=== PATIENT | male | born 1990 | race Caucasian/White ===

== ENCOUNTER 2016-03-23 05:30 | Emergency (ER) | payer OTHER, SELFPAY ==
[~2016-03-23 05:30] MED LIST: CELE20TA PO
--- NOTE | 2016-03-23 07:07 | EDDOCDS ---
Nurse's Notes [facility] Name: Emmett Gandhi Age: 25 yrs Sex: Male : 1990 Arrival Date: 03/23/2016 Time: 05:30 Bed I3 / M3 Private MD: Diagnosis: Presentation: 03/23 05:33 Presenting complaint: Patient states: Hot and cold flashes, vomiting diarrhea since kmg1 Wednesday morning. Adult Sepsis Screening: The patient does not have new or worsening altered mentation. Patient's respiratory rate is less than 22. Systolic blood pressure is greater than 100. Patient has a qSOFA score of 0- Negative Sepsis Screen. Suicide/Homicide risk assessment- the patient denies having any suicidal and/or homicidal ideations and does not present with any other emotional, behavioral or mental health complaints. 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 Transition of care: patient was not received from another setting of care. 05:33 Acuity: QUIQUE Level 4 km 05:33 Method Of Arrival: Walkin/Carried/Asstd km Triage Assessment: 05:36 General: Appears in no apparent distress, ill, Behavior is appropriate for age, kmg1 cooperative, pleasant. Pain: Denies pain. HIV screening NA for this visit Offered previously. Neurological: Level of Consciousness is awake, alert, Oriented to person, place, time. GI: Reports diarrhea, nausea, vomiting. Historical: - Allergies: PENICILLINS; - Home Meds: 1. ibuprofen 200 mg oral tab 4 tabs every 6 hours (Last dose: 03/22/2016 10:00) - PMHx: none; - PSHx: none; - Social history: Smoking status: Patient uses tobacco products, light tobacco smoker. No barriers to communication noted, The patient speaks fluent Telugu, Speaks appropriately for age. - : The pt / caregiver states he / she is not on anticoagulants. Home medication list is obtained from the patient. - Exposure Risk Screening:: None identified. Assessment: 07:04 General: Called from both waiting rooms and no answer - patient apparently left without kcs being seen.. Vital Signs: 05:36 BP 143 / 79; Pulse 129; Resp 20; Temp 99.2(TE); Pulse Ox 99% on R/A; Weight 138.35 kg kmg1 (R); Height 6 ft. 3 in. (190.50 cm) (R); Pain 0/10; 05:36 Body Mass Index 38.12 (138.35 kg, 190.50 cm) [facility] [place] Vitals: 05:36 Log In Time: March 23, 2016 at 05:31. [facility] [place] ED Course: 05:31 Patient visited by Elizabeth Eduardo, Reg. hs2 05:31 Patient moved to Waiting hs2 05:35 Triage Initiated km 07:00 Patient moved to I3 / M3 kcs 07:01 Karie Gordon,RN is Primary Nurse. ja5 07:04 Cristian Sesay PA-C is PHCP. cc10 07:04 Sebastien Soto MD is Attending Physician. cc10 07:04 Patient visited by Cristian Sesay PA-C. cc10 07:04 Patient visited by Cristian Sesay PA-C. cc10 07:04 Isabel Lopez, ROBER is Primary Nurse. jc4 Order Results: There are currently no results for this order. Outcome: 07:04 Left without being seen: due to wait time and the Refusal of Services form has been kcs completed and entered into the chart Notification of LWBS status is reported to the charge nurse, the ED attending physician. 07:05 Patient left the ED. kcs Signatures: Marcia Kirby, RN RN Diana Scherer, RN ROBER kmg1 Isabel Lopez, ROBER RICHTER jc4 Cristian Sesay PA-C PA-C cc Elizabeth Eduardo, Reg Reg hs2 Karie Gordon,RN ROBER ja5 MTDD
--- NOTE | 2016-03-23 07:07 | EDDOCDS ---
[facility] Name: Emmett Gandhi Age: 25 yrs Sex: Male : 1990 Arrival Date: 03/23/2016 Time: 05:30 Bed I3 / M3 Private MD: Disposition: 03/23/16 07:05 Patient left the facility Before Provider Exam, No Interventions. - Patient left due to Left due to wait time. Historical: - Allergies: PENICILLINS; - Home Meds: 1. ibuprofen 200 mg oral tab 4 tabs every 6 hours (Last dose: 03/22/2016 10:00) - PMHx: none; - PSHx: none; - Social history: Smoking status: Patient uses tobacco products, light tobacco smoker. No barriers to communication noted, The patient speaks fluent Swedish, Speaks appropriately for age. - : The pt / caregiver states he / she is not on anticoagulants. Home medication list is obtained from the patient. - Exposure Risk Screening:: None identified. Vital Signs: 03/23 05:36 BP 143 / 79; Pulse 129; Resp 20; Temp 99.2(TE); Pulse Ox 99% on R/A; Weight 138.35 kg / kmg1 305.01 lbs (R); Height 6 ft. 3 in. (190.50 cm) (R); Pain 0/10; 05:36 Body Mass Index 38.12 (138.35 kg, 190.50 cm) kmg1 Signatures: Marcia Kirby RN RN [facility] Diana Singletary RN RN [facility] MTDD
--- NOTE | 2016-03-25 08:08 | EDDOCDS ---
Physician Documentation [facility] Name: Emmett Gandhi Age: 25 yrs Sex: Male : 1990 Arrival Date: 03/23/2016 Time: 05:30 Bed I3 / M3 Private MD: Disposition: 03/23/16 07:05 Patient left the facility Before Provider Exam, No Interventions. - Patient left due to Left due to wait time. Historical: - Allergies: PENICILLINS; - Home Meds: 1. ibuprofen 200 mg oral tab 4 tabs every 6 hours (Last dose: 03/22/2016 10:00) - PMHx: none; - PSHx: none; - Social history: Smoking status: Patient uses tobacco products, light tobacco smoker. No barriers to communication noted, The patient speaks fluent Slovak, Speaks appropriately for age. - : The pt / caregiver states he / she is not on anticoagulants. Home medication list is obtained from the patient. - Exposure Risk Screening:: None identified. Vital Signs: 03/23 05:36 BP 143 / 79; Pulse 129; Resp 20; Temp 99.2(TE); Pulse Ox 99% on R/A; Weight 138.35 kg / kmg1 305.01 lbs (R); Height 6 ft. 3 in. (190.50 cm) (R); Pain 0/10; 05:36 Body Mass Index 38.12 (138.35 kg, 190.50 cm) kmg1 Signatures: Marcia Kirby RN RN [facility] Diana Singletary RN RN [facility] Chart Complete MTDD
--- NOTE | 2016-03-25 08:08 | EDDOCDS ---
Nurse's Notes [facility] Name: Emmett Gandhi Age: 25 yrs Sex: Male : 1990 Arrival Date: 03/23/2016 Time: 05:30 Bed I3 / M3 Private MD: Diagnosis: Presentation: 03/23 05:33 Presenting complaint: Patient states: Hot and cold flashes, vomiting diarrhea since kmg1 Wednesday morning. Adult Sepsis Screening: The patient does not have new or worsening altered mentation. Patient's respiratory rate is less than 22. Systolic blood pressure is greater than 100. Patient has a qSOFA score of 0- Negative Sepsis Screen. Suicide/Homicide risk assessment- the patient denies having any suicidal and/or homicidal ideations and does not present with any other emotional, behavioral or mental health complaints. 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 Transition of care: patient was not received from another setting of care. 05:33 Acuity: QUIQUE Level 4 km 05:33 Method Of Arrival: Walkin/Carried/Asstd km Triage Assessment: 05:36 General: Appears in no apparent distress, ill, Behavior is appropriate for age, kmg1 cooperative, pleasant. Pain: Denies pain. HIV screening NA for this visit Offered previously. Neurological: Level of Consciousness is awake, alert, Oriented to person, place, time. GI: Reports diarrhea, nausea, vomiting. Historical: - Allergies: PENICILLINS; - Home Meds: 1. ibuprofen 200 mg oral tab 4 tabs every 6 hours (Last dose: 03/22/2016 10:00) - PMHx: none; - PSHx: none; - Social history: Smoking status: Patient uses tobacco products, light tobacco smoker. No barriers to communication noted, The patient speaks fluent Korean, Speaks appropriately for age. - : The pt / caregiver states he / she is not on anticoagulants. Home medication list is obtained from the patient. - Exposure Risk Screening:: None identified. Assessment: 07:04 General: Called from both waiting rooms and no answer - patient apparently left without kcs being seen.. Vital Signs: 05:36 BP 143 / 79; Pulse 129; Resp 20; Temp 99.2(TE); Pulse Ox 99% on R/A; Weight 138.35 kg kmg1 (R); Height 6 ft. 3 in. (190.50 cm) (R); Pain 0/10; 05:36 Body Mass Index 38.12 (138.35 kg, 190.50 cm) [facility] [place] Vitals: 05:36 Log In Time: March 23, 2016 at 05:31. [facility] [place] ED Course: 05:31 Patient visited by Elizabeth Eduardo, Reg. hs2 05:31 Patient moved to Waiting hs2 05:35 Triage Initiated km 07:00 Patient moved to I3 / M3 kcs 07:01 Karie Gordon,RN is Primary Nurse. ja5 07:04 Cristian Sesay PA-C is PHCP. cc10 07:04 Sebastien Soto MD is Attending Physician. cc10 07:04 Patient visited by Cristian Sesay PA-C. cc10 07:04 Patient visited by Cristian Sesay PA-C. cc10 07:04 Isabel Lopez, ROBER is Primary Nurse. jc4 Order Results: There are currently no results for this order. Outcome: 07:04 Left without being seen: due to wait time and the Refusal of Services form has been kcs completed and entered into the chart Notification of LWBS status is reported to the charge nurse, the ED attending physician. 07:05 Patient left the ED. kcs Signatures: Marcia Kirby, RN RN Diana Scherer, RN ROBER kmg1 Isabel Lopez, RN ROBER jc4 Cristian Sesay PA-C PA-C cc10 Elizabeth Eduardo, Reg Reg hs2 Karie Gordon,RN ROBER ja5 Chart Complete MTDD
--- NOTE | 2016-03-25 08:08 | EDDOCDS ---
Physician Documentation [facility] Name: Emmett Gandhi Age: 25 yrs Sex: Male : 1990 Arrival Date: 03/23/2016 Time: 05:30 Bed I3 / M3 Private MD: Disposition: 03/23/16 07:05 Patient left the facility Before Provider Exam, No Interventions. - Patient left due to Left due to wait time. Historical: - Allergies: PENICILLINS; - Home Meds: 1. ibuprofen 200 mg oral tab 4 tabs every 6 hours (Last dose: 03/22/2016 10:00) - PMHx: none; - PSHx: none; - Social history: Smoking status: Patient uses tobacco products, light tobacco smoker. No barriers to communication noted, The patient speaks fluent Georgian, Speaks appropriately for age. - : The pt / caregiver states he / she is not on anticoagulants. Home medication list is obtained from the patient. - Exposure Risk Screening:: None identified. Vital Signs: 03/23 05:36 BP 143 / 79; Pulse 129; Resp 20; Temp 99.2(TE); Pulse Ox 99% on R/A; Weight 138.35 kg / kmg1 305.01 lbs (R); Height 6 ft. 3 in. (190.50 cm) (R); Pain 0/10; 05:36 Body Mass Index 38.12 (138.35 kg, 190.50 cm) kmg1 Signatures: Marcia Kirby RN RN [facility] Diana Singletary RN RN [facility] Chart Complete MTDD
--- NOTE | 2016-03-26 11:57 | EDDOCDS ---
Physician Documentation [facility] Name: Emmett Gandhi Age: 25 yrs Sex: Male : 1990 Arrival Date: 03/23/2016 Time: 05:30 Bed I3 / M3 Private MD: Disposition: 03/23/16 07:05 Patient left the facility Before Provider Exam, No Interventions. - Patient left due to Left due to wait time. Historical: - Allergies: PENICILLINS; - Home Meds: 1. ibuprofen 200 mg oral tab 4 tabs every 6 hours (Last dose: 03/22/2016 10:00) - PMHx: none; - PSHx: none; - Social history: Smoking status: Patient uses tobacco products, light tobacco smoker. No barriers to communication noted, The patient speaks fluent Syriac, Speaks appropriately for age. - : The pt / caregiver states he / she is not on anticoagulants. Home medication list is obtained from the patient. - Exposure Risk Screening:: None identified. Vital Signs: 03/23 05:36 BP 143 / 79; Pulse 129; Resp 20; Temp 99.2(TE); Pulse Ox 99% on R/A; Weight 138.35 kg / kmg1 305.01 lbs (R); Height 6 ft. 3 in. (190.50 cm) (R); Pain 0/10; 05:36 Body Mass Index 38.12 (138.35 kg, 190.50 cm) kmg1 Signatures: Marcia Kirby RN RN [facility] Diana Singletary RN RN [facility] [place] MTDD
--- NOTE | 2016-03-26 11:57 | EDDOCDS ---
Physician Documentation [facility] Name: Emmett Gandhi Age: 25 yrs Sex: Male : 1990 Arrival Date: 03/23/2016 Time: 05:30 Bed I3 / M3 Private MD: Disposition: 03/23/16 07:05 Patient left the facility Before Provider Exam, No Interventions. - Patient left due to Left due to wait time. Historical: - Allergies: PENICILLINS; - Home Meds: 1. ibuprofen 200 mg oral tab 4 tabs every 6 hours (Last dose: 03/22/2016 10:00) - PMHx: none; - PSHx: none; - Social history: Smoking status: Patient uses tobacco products, light tobacco smoker. No barriers to communication noted, The patient speaks fluent Kiswahili, Speaks appropriately for age. - : The pt / caregiver states he / she is not on anticoagulants. Home medication list is obtained from the patient. - Exposure Risk Screening:: None identified. Vital Signs: 03/23 05:36 BP 143 / 79; Pulse 129; Resp 20; Temp 99.2(TE); Pulse Ox 99% on R/A; Weight 138.35 kg / kmg1 305.01 lbs (R); Height 6 ft. 3 in. (190.50 cm) (R); Pain 0/10; 05:36 Body Mass Index 38.12 (138.35 kg, 190.50 cm) kmg1 Signatures: Marcia Kirby RN RN [facility] Diana Singletary RN RN [facility] [place] MTDD
--- NOTE | 2016-03-26 11:57 | EDDOCDS ---
Nurse's Notes [facility] Name: Emmett Gandhi Age: 25 yrs Sex: Male : 1990 Arrival Date: 03/23/2016 Time: 05:30 Bed I3 / M3 Private MD: Diagnosis: Presentation: 03/23 05:33 Presenting complaint: Patient states: Hot and cold flashes, vomiting diarrhea since kmg1 Wednesday morning. Adult Sepsis Screening: The patient does not have new or worsening altered mentation. Patient's respiratory rate is less than 22. Systolic blood pressure is greater than 100. Patient has a qSOFA score of 0- Negative Sepsis Screen. Suicide/Homicide risk assessment- the patient denies having any suicidal and/or homicidal ideations and does not present with any other emotional, behavioral or mental health complaints. 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 Transition of care: patient was not received from another setting of care. 05:33 Acuity: QUIQUE Level 4 km 05:33 Method Of Arrival: Walkin/Carried/Asstd km Triage Assessment: 05:36 General: Appears in no apparent distress, ill, Behavior is appropriate for age, kmg1 cooperative, pleasant. Pain: Denies pain. HIV screening NA for this visit Offered previously. Neurological: Level of Consciousness is awake, alert, Oriented to person, place, time. GI: Reports diarrhea, nausea, vomiting. Historical: - Allergies: PENICILLINS; - Home Meds: 1. ibuprofen 200 mg oral tab 4 tabs every 6 hours (Last dose: 03/22/2016 10:00) - PMHx: none; - PSHx: none; - Social history: Smoking status: Patient uses tobacco products, light tobacco smoker. No barriers to communication noted, The patient speaks fluent Uzbek, Speaks appropriately for age. - : The pt / caregiver states he / she is not on anticoagulants. Home medication list is obtained from the patient. - Exposure Risk Screening:: None identified. Assessment: 07:04 General: Called from both waiting rooms and no answer - patient apparently left without kcs being seen.. Vital Signs: 05:36 BP 143 / 79; Pulse 129; Resp 20; Temp 99.2(TE); Pulse Ox 99% on R/A; Weight 138.35 kg kmg1 (R); Height 6 ft. 3 in. (190.50 cm) (R); Pain 0/10; 05:36 Body Mass Index 38.12 (138.35 kg, 190.50 cm) [facility] [place] Vitals: 05:36 Log In Time: March 23, 2016 at 05:31. [facility] [place] ED Course: 05:31 Patient visited by Elizabeth Eduardo, Reg. hs2 05:31 Patient moved to Waiting hs2 05:35 Triage Initiated km 07:00 Patient moved to I3 / M3 kcs 07:01 Karie Gordon,RN is Primary Nurse. ja5 07:04 Cristian Sesay PA-C is PHCP. cc10 07:04 Sebastien Soto MD is Attending Physician. cc10 07:04 Patient visited by Cristian Sesay PA-C. cc10 07:04 Patient visited by Cristian Sesay PA-C. cc10 07:04 Isabel Lopez, RN is Primary Nurse. jc4 Order Results: There are currently no results for this order. Outcome: 07:04 Left without being seen: due to wait time and the Refusal of Services form has been kcs completed and entered into the chart Notification of LWBS status is reported to the charge nurse, the ED attending physician. 07:05 Patient left the ED. nakul Addendum: 03/26/2016 11:55 Narrative: Letter and discharge instructions mailed to pt. tc Signatures: Marcia Kirby, RN RN [facility] Sarah Beth Bustos Diana Singletary RN ROBER [facility] [place] Isabel Lopez, ROBER RICHTER jc4 Cristian Sesay PA-C PA-C [facility] Elizabeth Eduardo, Reg Reg hs2 Karie Gordon,RN ROBER ja5 MTDD
--- NOTE | 2016-03-26 11:58 | EDDOCDS ---
Physician Documentation [facility] Name: Emmett Gandhi Age: 25 yrs Sex: Male : 1990 Arrival Date: 03/23/2016 Time: 05:30 Bed I3 / M3 Private MD: Disposition: 03/23/16 07:05 Patient left the facility Before Provider Exam, No Interventions. - Patient left due to Left due to wait time. Historical: - Allergies: PENICILLINS; - Home Meds: 1. ibuprofen 200 mg oral tab 4 tabs every 6 hours (Last dose: 03/22/2016 10:00) - PMHx: none; - PSHx: none; - Social history: Smoking status: Patient uses tobacco products, light tobacco smoker. No barriers to communication noted, The patient speaks fluent Uzbek, Speaks appropriately for age. - : The pt / caregiver states he / she is not on anticoagulants. Home medication list is obtained from the patient. - Exposure Risk Screening:: None identified. Vital Signs: 03/23 05:36 BP 143 / 79; Pulse 129; Resp 20; Temp 99.2(TE); Pulse Ox 99% on R/A; Weight 138.35 kg / kmg1 305.01 lbs (R); Height 6 ft. 3 in. (190.50 cm) (R); Pain 0/10; 05:36 Body Mass Index 38.12 (138.35 kg, 190.50 cm) kmg1 Signatures: Marcia Kirby RN RN [facility] Diana Singletary RN RN [facility] Chart Complete MTDD
--- NOTE | 2016-03-26 11:58 | EDDOCDS ---
Physician Documentation [facility] Name: Emmett Gandhi Age: 25 yrs Sex: Male : 1990 Arrival Date: 03/23/2016 Time: 05:30 Bed I3 / M3 Private MD: Disposition: 03/23/16 07:05 Patient left the facility Before Provider Exam, No Interventions. - Patient left due to Left due to wait time. Historical: - Allergies: PENICILLINS; - Home Meds: 1. ibuprofen 200 mg oral tab 4 tabs every 6 hours (Last dose: 03/22/2016 10:00) - PMHx: none; - PSHx: none; - Social history: Smoking status: Patient uses tobacco products, light tobacco smoker. No barriers to communication noted, The patient speaks fluent Wolof, Speaks appropriately for age. - : The pt / caregiver states he / she is not on anticoagulants. Home medication list is obtained from the patient. - Exposure Risk Screening:: None identified. Vital Signs: 03/23 05:36 BP 143 / 79; Pulse 129; Resp 20; Temp 99.2(TE); Pulse Ox 99% on R/A; Weight 138.35 kg / kmg1 305.01 lbs (R); Height 6 ft. 3 in. (190.50 cm) (R); Pain 0/10; 05:36 Body Mass Index 38.12 (138.35 kg, 190.50 cm) kmg1 Signatures: Marcia Kirby RN RN [facility] [place] Diana Singletary RN RN [facility] [place] Chart Complete MTDD
--- NOTE | 2016-03-26 11:59 | EDDOCDS ---
Nurse's Notes [facility] Name: Emmett Gandhi Age: 25 yrs Sex: Male : 1990 Arrival Date: 03/23/2016 Time: 05:30 Bed I3 / M3 Private MD: Diagnosis: Presentation: 03/23 05:33 Presenting complaint: Patient states: Hot and cold flashes, vomiting diarrhea since kmg1 Wednesday morning. Adult Sepsis Screening: The patient does not have new or worsening altered mentation. Patient's respiratory rate is less than 22. Systolic blood pressure is greater than 100. Patient has a qSOFA score of 0- Negative Sepsis Screen. Suicide/Homicide risk assessment- the patient denies having any suicidal and/or homicidal ideations and does not present with any other emotional, behavioral or mental health complaints. 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 Transition of care: patient was not received from another setting of care. 05:33 Acuity: QUIQUE Level 4 km 05:33 Method Of Arrival: Walkin/Carried/Asstd km Triage Assessment: 05:36 General: Appears in no apparent distress, ill, Behavior is appropriate for age, kmg1 cooperative, pleasant. Pain: Denies pain. HIV screening NA for this visit Offered previously. Neurological: Level of Consciousness is awake, alert, Oriented to person, place, time. GI: Reports diarrhea, nausea, vomiting. Historical: - Allergies: PENICILLINS; - Home Meds: 1. ibuprofen 200 mg oral tab 4 tabs every 6 hours (Last dose: 03/22/2016 10:00) - PMHx: none; - PSHx: none; - Social history: Smoking status: Patient uses tobacco products, light tobacco smoker. No barriers to communication noted, The patient speaks fluent Faroese, Speaks appropriately for age. - : The pt / caregiver states he / she is not on anticoagulants. Home medication list is obtained from the patient. - Exposure Risk Screening:: None identified. Assessment: 07:04 General: Called from both waiting rooms and no answer - patient apparently left without kcs being seen.. Vital Signs: 05:36 BP 143 / 79; Pulse 129; Resp 20; Temp 99.2(TE); Pulse Ox 99% on R/A; Weight 138.35 kg kmg1 (R); Height 6 ft. 3 in. (190.50 cm) (R); Pain 0/10; 05:36 Body Mass Index 38.12 (138.35 kg, 190.50 cm) [facility] [place] Vitals: 05:36 Log In Time: March 23, 2016 at 05:31. [facility] [place] ED Course: 05:31 Patient visited by Elizabeth Eduardo, Reg. hs2 05:31 Patient moved to Waiting hs2 05:35 Triage Initiated km 07:00 Patient moved to I3 / M3 kcs 07:01 Karie Gordon,RN is Primary Nurse. ja5 07:04 Cristian Sesay PA-C is PHCP. cc10 07:04 Sebastien Soto MD is Attending Physician. cc10 07:04 Patient visited by Cristian Sesay PA-C. cc10 07:04 Patient visited by Cristian Sesay PA-C. cc10 07:04 Isabel Lopez, RN is Primary Nurse. jc4 Order Results: There are currently no results for this order. Outcome: 07:04 Left without being seen: due to wait time and the Refusal of Services form has been kcs completed and entered into the chart Notification of LWBS status is reported to the charge nurse, the ED attending physician. 07:05 Patient left the ED. [facility] Addendum: 03/26/2016 11:55 Narrative: Letter and discharge instructions mailed to pt. tc Signatures: Marcia Kirby, RN RN [facility] Sarah Beth Bustos Diana Singletary RN ROBER [facility] [place] Isabel Lopez, RN ROBER jc4 Cristian Sesay PA-C PA-C [facility] Elizabeth Eduardo, Reg Reg hs2 Karie Gordon,RN RN ja5 Chart Complete MTDD
== END 2016-03-23 07:05 | disposition left against medical advice (07) ==
LOC: M ED 05:30
DX: M79.1 Myalgia (principal); Z53.29 Procedure and treatment not carried out because of patient's decision for other reasons

== ENCOUNTER 2016-07-03 11:36 | Emergency (ER) | payer SELFPAY ==
[~2016-07-03] VITALS: Ht 190.5 cm; Wt 132.9 kg
[2016-07-03 11:36] VITALS: BP 146/82
[2016-07-03] MEDS ORDERED: IBUP600T26 PO (11:46)
--- NOTE | 2016-07-03 12:59 | REP ---
Clinical: Right upper extremity pain . Technique: Ochoa scale and color Doppler evaluation using linear high frequency transducer. Findings: Ultrasound examination of the right upper extremity deep venous structures from the jugular, subclavian, axillary, brachial, and basilic veins demonstrate normal compressibility flow and wave patterns in response to respiration and augmentation. Cephalic vein demonstrates venous stasis but without thrombosis. There is no evidence for deep venous thrombosis. In the proximal forearm medial to the elbow is a complex intramuscular echogenic focus measuring 10 x 7 x 9 mm and may represent hematoma - - correlation is recommended. Impression: 1. No evidence for deep venous thrombosis. 2. 10 mm complex intramuscular focus which may represent small hematoma and warrants correlation. Signed by Suhail Whitlock MD 07/03/2016 12:51 P
[2016-07-03] MEDS ORDERED: IBUP80TA PO (13:22)
== END 2016-07-03 13:35 | disposition home or self-care (01) ==
LOC: M ED 12:29
DX: M77.8 Other enthesopathies, not elsewhere classified (principal); F17.200 Nicotine dependence, unspecified, uncomplicated

== ENCOUNTER 2018-01-29 23:40 | Emergency (ER) | payer OTHER, SELFPAY ==
[2018-01-30] MEDS: IBUPROFEN 600 MG TAB PO (00:55)
[2018-01-30] MEDS: METHOCARBAMOL 750 MG TAB PO (00:55)
== END 2018-01-30 01:58 | disposition home or self-care (01) ==
LOC: M ED 23:40
DX: S20.219A Contusion of unspecified front wall of thorax, initial encounter (principal); S29.012A Strain of muscle and tendon of back wall of thorax, initial encounter; S50.811A Abrasion of right forearm, initial encounter; V43.62XA Car passenger injured in collision with other type car in traffic accident, initial encounter; Y92.9 Unspecified place or not applicable; Y93.9 Activity, unspecified; Y99.9 Unspecified external cause status; Z72.0 Tobacco use
CPT/HCPCS: 99283

== ENCOUNTER → 2018-03-09 | Outpatient (REF) | payer OTHER ==
[~2018-03-09] MED LIST changes: +IBUP-1022 PO; +IBUP80TA PO; +ROBA500T PO
[2018-03-09 12:30] LABS: BASO # 0.1 10^3/uL (0.0-0.2); EOS # 0.2 10^3/uL (0.0-0.50); EOS % 2.2 % (0.0-3.0); HEMATOCRIT 43.7 % (42.0-52.0); LYMPH # 2.1 10^3/uL (1.5-6.5); LYMPH % 24.9 % (24.0-44.0); MEAN CORPUSCULAR HEMOGLOBIN 30.3 pg (27.0-33.0); MEAN CORPUSCULAR HGB CONC 34.3 g/dl (32.0-36.5); MEAN CORPUSCULAR VOLUME 88.3 fl (80.0-96.0); MONO # 0.6 10^3/uL (0.0-0.8); MONO % 7.1 % (0.0-5.0); NEUTROPHILS # 5.5 10^3/uL (1.8-7.7); NEUTROPHILS % 63.5 % (36.0-66.0); PLATELET COUNT, AUTOMATED 157 10^3/uL (150-450); RED BLOOD COUNT 4.95 10^6/uL (4.30-6.10); WHITE BLOOD COUNT 8.6 10^3/uL (4.0-10.0)
[2018-03-09 12:55] LABS: HEMOGLOBIN A1c 12.1 %
[2018-03-09 13:05] LABS: ALBUMIN 3.9 GM/DL (3.2-5.2); ALT/SGPT 171 U/L (12-78); BILIRUBIN,TOTAL 0.5 MG/DL (0.2-1.0); BLOOD UREA NITROGEN 11 MG/DL (7-18); CALCIUM LEVEL 8.8 MG/DL (8.5-10.1); CARBON DIOXIDE LEVEL 26 MEQ/L (21-32); CHLORIDE LEVEL 100 MEQ/L (98-107); CHOLESTEROL LEVEL 167 MG/DL (<200); CHOLESTEROL RISK RATIO 5.964 (<5); GLOMERULAR FILTRATION RATE > 60.0 (>60); GLUCOSE, FASTING 322 MG/DL (70-100); HDL CHOLESTEROL 28 MG/DL (>40); LDL CHOLESTEROL 70 MG/DL (<100); NON-HDL-C 139 MG/DL; POTASSIUM SERUM 4.1 MEQ/L (3.5-5.1); SODIUM LEVEL 136 MEQ/L (136-145); TOTAL 25(OH) VITAMIN D 15.7 NG/ML (30.0-100.0); TOTAL PROTEIN 7.5 GM/DL (6.4-8.2); TRIGLYCERIDES LEVEL 344 MG/DL (<150)
== END ==
LOC: M LAB REF 12:06
PROVIDERS: ATTEND Nurse Practitioner Family
DX: Z13.9 Encounter for screening, unspecified (principal)

== ENCOUNTER → 2018-06-16 | Outpatient (REF) | payer OTHER ==
[2018-06-16 18:18] LABS: BASO # 0.1 10^3/uL (0.0-0.2); BASO % 0.6 % (0.0-1.0); EOS # 0.2 10^3/uL (0.0-0.50); EOS % 2.7 % (0.0-3.0); HEMATOCRIT 45.1 % (42.0-52.0); LYMPH # 2.4 10^3/uL (1.5-6.5); LYMPH % 28.5 % (24.0-44.0); MEAN CORPUSCULAR HEMOGLOBIN 30.9 pg (27.0-33.0); MEAN CORPUSCULAR HGB CONC 33.3 g/dl (32.0-36.5); MONO # 0.5 10^3/uL (0.0-0.8); MONO % 6.4 % (0.0-5.0); NEUTROPHILS # 5.2 10^3/uL (1.8-7.7); NEUTROPHILS % 61.1 % (36.0-66.0); PLATELET COUNT, AUTOMATED 163 10^3/uL (150-450); RED BLOOD COUNT 4.85 10^6/uL (4.30-6.10); WHITE BLOOD COUNT 8.5 10^3/uL (4.0-10.0)
[2018-06-16 18:47] LABS: HEMOGLOBIN A1c 9.7 %
[2018-06-16 18:53] LABS: ALBUMIN 3.4 GM/DL (3.2-5.2); ALT/SGPT 114 U/L (12-78); BILIRUBIN,TOTAL 0.5 MG/DL (0.2-1.0); BLOOD UREA NITROGEN 12 MG/DL (7-18); CALCIUM LEVEL 8.7 MG/DL (8.5-10.1); CARBON DIOXIDE LEVEL 29 MEQ/L (21-32); CHLORIDE LEVEL 102 MEQ/L (98-107); CHOLESTEROL LEVEL 160 MG/DL (<200); CHOLESTEROL RISK RATIO 5.714 (<5); CREATININE FOR GFR 0.94 MG/DL (0.70-1.30); GLOMERULAR FILTRATION RATE > 60.0 (>60); GLUCOSE, FASTING 290 MG/DL (70-100); HDL CHOLESTEROL 28 MG/DL (>40); LDL CHOLESTEROL 70 MG/DL (<100); NON-HDL-C 132 MG/DL; POTASSIUM SERUM 4.1 MEQ/L (3.5-5.1); SODIUM LEVEL 137 MEQ/L (136-145); TOTAL PROTEIN 7.6 GM/DL (6.4-8.2); TRIGLYCERIDES LEVEL 308 MG/DL (<150)
== END ==
LOC: M LAB REF 17:21
PROVIDERS: ATTEND Nurse Practitioner Family
DX: I10 Essential (primary) hypertension (principal); E11.9 Type 2 diabetes mellitus without complications

== ENCOUNTER → 2019-06-28 | Outpatient (REF) | payer OTHER, MEDICAID ==
[2019-06-28 19:00] LABS: BASO # 0.1 10^3/uL (0.0-0.2); BASO % 0.9 % (0.0-1.0); EOS # 0.1 10^3/uL (0.0-0.5); EOS % 1.5 % (0.0-3.0); HEMATOCRIT 41.4 % (42.0-52.0); HEMOGLOBIN 13.7 g/dl (13.5-17.5); LYMPH # 1.6 10^3/uL (1.5-5.0); LYMPH % 18.8 % (24.0-44.0); MEAN CORPUSCULAR HEMOGLOBIN 30.4 pg (27.0-33.0); MEAN CORPUSCULAR HGB CONC 33.1 g/dl (32.0-36.5); MONO # 0.6 10^3/uL (0.0-0.8); MONO % 7.1 % (0.0-5.0); NEUTROPHILS % 71.2 % (36.0-66.0); PLATELET COUNT, AUTOMATED 158 10^3/uL (150-450); WHITE BLOOD COUNT 8.5 10^3/uL (4.0-10.0)
[2019-06-28 19:13] LABS: HEMOGLOBIN A1c 10.4 %
[2019-06-28 19:33] LABS: ALBUMIN 3.9 GM/DL (3.2-5.2); ALT/SGPT 113 U/L (12-78); BILIRUBIN,TOTAL 0.6 MG/DL (0.2-1.0); BLOOD UREA NITROGEN 9 MG/DL (7-18); CALCIUM LEVEL 8.9 MG/DL (8.5-10.1); CARBON DIOXIDE LEVEL 26 MEQ/L (21-32); CHLORIDE LEVEL 105 MEQ/L (98-107); CHOLESTEROL LEVEL 140 MG/DL (<200); CHOLESTEROL RISK RATIO 4.117 (<5); CREATININE FOR GFR 0.88 MG/DL (0.70-1.30); FERRITIN 402 NG/ML (26-388); FREE T4 1.32 NG/DL (0.76-1.46); GLOMERULAR FILTRATION RATE > 60.0 (>60); GLUCOSE, FASTING 209 MG/DL (70-100); HDL CHOLESTEROL 34 MG/DL (>40); IRON (FE) 55 UG/DL (65-175); LDL CHOLESTEROL 85 MG/DL (<100); NON-HDL-C 106 MG/DL; POTASSIUM SERUM 3.7 MEQ/L (3.5-5.1); SODIUM LEVEL 140 MEQ/L (136-145); TOTAL PROTEIN 7.6 GM/DL (6.4-8.2); TRIGLYCERIDES LEVEL 103 MG/DL (<150)
[2019-06-28 19:35] LABS: FOLATE 8.2 NG/ML; TOTAL 25(OH) VITAMIN D 14.6 NG/ML (30.0-100.0)
[2019-06-29 09:09] LABS: VITAMIN B12 LEVEL 926 PG/ML
== END ==
LOC: M LAB REF 17:04
PROVIDERS: ATTEND Nurse Practitioner Family
DX: F10.21 Alcohol dependence, in remission (principal); I10 Essential (primary) hypertension; G47.00 Insomnia, unspecified; E11.9 Type 2 diabetes mellitus without complications; R03.0 Elevated blood-pressure reading, without diagnosis of hypertension; Z13.9 Encounter for screening, unspecified; F17.210 Nicotine dependence, cigarettes, uncomplicated; F32.9 Major depressive disorder, single episode, unspecified

== ENCOUNTER 2019-08-29 22:26 | Emergency (ER) | payer MEDICAID, OTHER ==
[~2019-08-29] VITALS: Ht 188 cm; Wt 120.5 kg
[2019-08-29 22:36] VITALS: BP 154/93
[2019-08-29] MEDS ORDERED: METF10004 PO (22:48)
[2019-08-29] MEDS ORDERED: NS 1,000 ML IV ONE (23:00)
[2019-08-29 23:25] LABS: HEMATOCRIT 46.1 % (42.0-52.0); HEMOGLOBIN 15.8 g/dl (13.5-17.5); MEAN CORPUSCULAR HEMOGLOBIN 31.7 pg (27.0-33.0); MEAN CORPUSCULAR HGB CONC 34.3 g/dl (32.0-36.5); MEAN CORPUSCULAR VOLUME 92.4 fl (80.0-96.0); PLATELET COUNT, AUTOMATED 197 10^3/uL (150-450); RED BLOOD COUNT 4.99 10^6/uL (4.30-6.10); WHITE BLOOD COUNT 7.6 10^3/uL (4.0-10.0)
[2019-08-29 23:50] LABS: AMPHETAMINES LEVEL URINE NEGATIVE (NEGATIVE); BARBITURATES URINE NEGATIVE (NEGATIVE); BENZODIAZEPINES URINE NEGATIVE (NEGATIVE); CANNABINOIDS URINE NEGATIVE (NEGATIVE); COCAINE METABOLITE URINE NEGATIVE (NEGATIVE); METHADONE URINE NEGATIVE (NEGATIVE); OPIATES URINE NEGATIVE (NEGATIVE); PHENCYCLIDINE URINE NEGATIVE (NEGATIVE)
[2019-08-30 00:02] LABS: ACETAMINOPHEN LEVEL < 2.0 UG/ML (10.0-30.0); ALBUMIN 3.9 GM/DL (3.2-5.2); ALT/SGPT 100 U/L (12-78); BILIRUBIN,DIRECT 0.2 MG/DL (0.0-0.2); BILIRUBIN,TOTAL 0.4 MG/DL (0.2-1.0); BLOOD UREA NITROGEN 6 MG/DL (7-18); CALCIUM LEVEL 8.7 MG/DL (8.5-10.1); CARBON DIOXIDE LEVEL 23 MEQ/L (21-32); CHLORIDE LEVEL 103 MEQ/L (98-107); CPK CREATINE PHOSPHOKINASE 150 U/L (39-308); CREATININE FOR GFR 0.91 MG/DL (0.70-1.30); ETHYL ALCOHOL (ETHANOL) 0.207 % (0.000-0.010); GLOMERULAR FILTRATION RATE > 60.0 (>60); GLUCOSE, FASTING 279 MG/DL (70-100); POTASSIUM SERUM 3.3 MEQ/L (3.5-5.1); SALICYLATE LEVEL 2.5 MG/DL (5.0-30.0); SODIUM LEVEL 137 MEQ/L (136-145)
--- NOTE | 2019-08-30 10:54 | ECGEPIP ---
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
== END 2019-08-29 23:35 | disposition left against medical advice (07) ==
LOC: EDBD 22:26 → M ED 22:26
DX: F10.120 Alcohol abuse with intoxication, uncomplicated (principal); R00.0 Tachycardia, unspecified; Z79.84 Long term (current) use of oral hypoglycemic drugs
CPT/HCPCS: 80048; 80076; 80307; 82550; 84443; 85027; 93005; 96360; 99284; G0480

== ENCOUNTER → 2019-10-10 | Outpatient (REF) | payer OTHER ==
[~2019-10-10] MED LIST changes: +METF10004 PO
[2019-10-10 13:58] LABS: HEMATOCRIT 45.6 % (42.0-52.0); HEMOGLOBIN 15.6 g/dl (13.5-17.5); MEAN CORPUSCULAR HEMOGLOBIN 31.5 pg (27.0-33.0); MEAN CORPUSCULAR HGB CONC 34.2 g/dl (32.0-36.5); MEAN CORPUSCULAR VOLUME 92.1 fl (80.0-96.0); PLATELET COUNT, AUTOMATED 214 10^3/uL (150-450); RED BLOOD COUNT 4.95 10^6/uL (4.30-6.10); WHITE BLOOD COUNT 9.7 10^3/uL (4.0-10.0)
[2019-10-10 14:06] LABS: ALBUMIN 4.1 GM/DL (3.2-5.2); ALT/SGPT 52 U/L (12-78); BILIRUBIN,TOTAL 0.8 MG/DL (0.2-1.0); BLOOD UREA NITROGEN 14 MG/DL (7-18); CALCIUM LEVEL 9.4 MG/DL (8.5-10.1); CARBON DIOXIDE LEVEL 28 MEQ/L (21-32); CHLORIDE LEVEL 102 MEQ/L (98-107); CHOLESTEROL LEVEL 128 MG/DL (<200); CHOLESTEROL RISK RATIO 3.878 (<5); CREATININE FOR GFR 0.91 MG/DL (0.70-1.30); GLOMERULAR FILTRATION RATE > 60.0 (>60); GLUCOSE, FASTING 153 MG/DL (70-100); HDL CHOLESTEROL 33 MG/DL (>40); LDL CHOLESTEROL 81 MG/DL (<100); NON-HDL-C 95 MG/DL; POTASSIUM SERUM 3.3 MEQ/L (3.5-5.1); SODIUM LEVEL 136 MEQ/L (136-145); TOTAL 25(OH) VITAMIN D 27.4 NG/ML (30.0-100.0); TOTAL PROTEIN 8.1 GM/DL (6.4-8.2); TRIGLYCERIDES LEVEL 68 MG/DL (<150)
[2019-10-10 14:43] LABS: ATYPICAL LYMPH 9 % (0-5); BASOPHILS 3 % (0-1); EOSINOPHILS 2 % (0-3); LYMPHOCYTES 23 % (16-44); MONOCYTES 11 % (0-5); NEUTROPHILS 49 % (28-66)
[2019-10-10 14:44] LABS: PLATELET ESTIMATE NORMAL (NORMAL)
[2019-10-10 15:11] LABS: HEMOGLOBIN A1c 7.9 %
== END ==
LOC: M LAB REF 11:44
PROVIDERS: ATTEND Nurse Practitioner Family
DX: E55.9 Vitamin D deficiency, unspecified (principal); R74.8 Abnormal levels of other serum enzymes; F10.21 Alcohol dependence, in remission; E11.9 Type 2 diabetes mellitus without complications; Z13.9 Encounter for screening, unspecified; F17.210 Nicotine dependence, cigarettes, uncomplicated

== ENCOUNTER → 2021-04-27 | Outpatient (REF) | payer OTHER | LOC: M LAB REF 17:37 | PROVIDERS: ATTEND Physician Assistant Medical | DX: R50.9 Fever, unspecified (principal); R53.83 Other fatigue; R05.9 Cough, unspecified ==

== ENCOUNTER 2022-05-01 11:09 | Emergency (ER) | payer OTHER ==
[~2022-05-01] VITALS: Ht 188 cm; Wt 139.0 kg
[2022-05-01 11:09] VITALS: BP 173/101
== END 2022-05-01 12:51 | disposition left against medical advice (07) ==
LOC: M ED 11:09
DX: Z53.21 Procedure and treatment not carried out due to patient leaving prior to being seen by health care provider (principal)

== ENCOUNTER 2022-09-03 07:26 | Emergency (ER) | payer OTHER ==
[~2022-09-03] VITALS: Ht 188 cm; Wt 133.9 kg
[2022-09-03] MEDS ORDERED: BUPR1FIL (07:36)
[2022-09-03] MEDS ORDERED: PENICILLIN V POTASSIUM 500 MG TAB PO ONE (08:10)
[2022-09-03] MEDS ORDERED: IBUPROFEN 600MG TAB PO ONE (08:10)
[2022-09-03] MEDS ORDERED: PENI500T PO (08:34)
[2022-09-03 08:49] VITALS: BP 178/97; TEMP 99.1; O2SAT 97
== END 2022-09-03 08:53 | disposition home or self-care (01) ==
LOC: M ED 07:26
DX: J02.0 Streptococcal pharyngitis (principal); Z79.899 Other long term (current) drug therapy

== ENCOUNTER 2023-04-06 16:19 | Emergency (ER) | payer OTHER ==
[~2023-04-06] VITALS: Ht 190.5 cm; Wt 138.9 kg
[~2023-04-06 16:19] MED LIST changes: +BUPR1FIL; +PENI500T PO
[2023-04-06 16:20] VITALS: BP 170/100; TEMP 96.5; O2SAT 98
== END 2023-04-06 16:35 | disposition left against medical advice (07) ==
LOC: M ED 16:19
DX: Z53.21 Procedure and treatment not carried out due to patient leaving prior to being seen by health care provider (principal)

== ENCOUNTER → 2024-02-16 | Outpatient (REF) | payer OTHER ==
[2024-02-16 14:14] LABS: CREATININE, URINE 46.3 MG/DL; MAU/CREAT RATIO 15.1 MCG/MG (0.0-30.0)
== END ==
LOC: M LAB REF 13:01
PROVIDERS: ATTEND Student in an Organized Health Care Education/Training Program
DX: E11.9 Type 2 diabetes mellitus without complications (principal)

== ENCOUNTER → 2024-02-21 | Outpatient (CLI) | payer OTHER ==
[2024-02-21 11:11] LABS: HEMATOCRIT 43.2 % (42.0-52.0); HEMOGLOBIN 14.7 g/dl (13.5-17.5); MEAN CORPUSCULAR HEMOGLOBIN 29.6 pg (27.0-33.0); MEAN CORPUSCULAR VOLUME 86.9 fl (80.0-96.0); PLATELET COUNT, AUTOMATED 146 10^3/uL (150-450); RED BLOOD COUNT 4.97 10^6/uL (4.30-6.10); WHITE BLOOD COUNT 7.8 10^3/uL (4.0-10.0)
[2024-02-21 11:29] LABS: ALKALINE PHOSPHATASE 55 U/L (40-129); ALT/SGPT 36 U/L (7.0-40); AST/SGOT 14 U/L (<34); BILIRUBIN,TOTAL 0.3 MG/DL (0.3-1.2); BLOOD UREA NITROGEN 14 MG/DL (9-23); CALCIUM LEVEL 9.6 MG/DL (8.5-10.1); CARBON DIOXIDE LEVEL 30 MMOL/L (20-31); CHLORIDE LEVEL 100 MMOL/L (98-107); CHOLESTEROL LEVEL 178 MG/DL (<200); CHOLESTEROL RISK RATIO 4.14 (<5); CREATININE FOR GFR 0.75 MG/DL (0.70-1.30); GLOMERULAR FILTRATION RATE > 60.0 (>60); GLUCOSE, FASTING 343 MG/DL (60-100); HDL CHOLESTEROL 42.9 MG/DL (>40); LDL CHOLESTEROL 106.9 MG/DL (<100); NON-HDL-C 135.1 MG/DL; POTASSIUM SERUM 4.2 MMOL/L (3.5-5.1); SODIUM LEVEL 138 MMOL/L (136-145); TOTAL PROTEIN 7.7 G/DL (5.7-8.2); TRIGLYCERIDES LEVEL 141 MG/DL (<150)
[2024-02-21 11:31] LABS: HEMOGLOBIN A1c 10.1 % (4.0-6.0)
== END ==
LOC: M WUC 08:17
PROVIDERS: ATTEND Student in an Organized Health Care Education/Training Program
DX: Z00.01 Encounter for general adult medical examination with abnormal findings (principal)

== ENCOUNTER → 2024-09-06 | Outpatient (REF) | payer OTHER ==
[2024-09-06 13:11] LABS: CREATININE, URINE 171.7 MG/DL; MALB URINE SIEMENS 12.0 MG/L; MAU/CREAT RATIO 6.9 MCG/MG (0.0-30.0)
[2024-09-06 13:19] LABS: ALT/SGPT 48 U/L (7.0-40); AST/SGOT 25 U/L (<34); CALCIUM LEVEL 9.4 MG/DL (8.5-10.1); CARBON DIOXIDE LEVEL 27 MMOL/L (20-31); CHLORIDE LEVEL 101 MMOL/L (98-107); CREATININE FOR GFR 0.66 MG/DL (0.70-1.30); GLOMERULAR FILTRATION RATE > 90.0 (>60); POTASSIUM SERUM 4.3 MMOL/L (3.5-5.1); SODIUM LEVEL 140 MMOL/L (136-145)
== END ==
LOC: M LAB REF 12:07
PROVIDERS: ATTEND Student in an Organized Health Care Education/Training Program
DX: E11.9 Type 2 diabetes mellitus without complications (principal)